=== PATIENT | male | born 1935 | race Caucasian/White ===

== ENCOUNTER 2016-08-12 13:11 | Day surgery (SDC) | payer OTHER ==
[~2016-08-12] VITALS: Ht 162.6 cm; Wt 44.4 kg
[2016-08-12 14:27] VITALS: Ht 162.6 cm; Wt 44.4 kg
[2016-08-12] MEDS ORDERED: FAMO40OR PO (14:39)
[2016-08-12] MEDS ORDERED: [UNRECOGNIZED DRUG - OTHER] (14:39)
[2016-08-12] MEDS ORDERED: CAPT12.52 PO (14:39)
[2016-08-12] MEDS ORDERED: ZOLP10TA PO (14:39)
[2016-08-12] MEDS ORDERED: TRAM50TA2 PO (14:39)
[2016-08-12] MEDS ORDERED: ATOR20TA65 PO (14:39)
[2016-08-12] MEDS ORDERED: ASPI-664 PO (14:39)
[2016-08-12] MEDS ORDERED: METO25TA7 PO (14:39)
[2016-08-12 15:54] VITALS: BP 124/65; PULSE 55; RESP 18
[2016-08-12] MEDS ORDERED: PROPOFOL 20 ML ONE (16:19)
[2016-08-12] MEDS ORDERED: FENTAnyl 50 MCG/ML VIAL ONE (16:19)
[2016-08-12] MEDS ORDERED: LIDOCAINE 4% SOLUTION 50 ML BTL ONE (16:21)
[2016-08-12 17:59] VITALS: BP 156/72; PULSE 51; RESP 18
--- NOTE | 2016-08-13 06:14 | GILP ---
DATE OF PROCEDURE: 08/12/2016 NAME OF PROCEDURE: Colonoscopy with cold snare polypectomy. SURGEON: Frances Chaves MD PREOPERATIVE DIAGNOSIS(ES) POSTOPERATIVE DIAGNOSIS(ES) HISTORY AND INDICATIONS: PREMEDICATION: Monitored anesthesia care by anesthesiologist. INSTRUMENT USED: Olympus colonoscope. PREPARATION: Adequate. TECHNIQUE: After informed consent, with the patient/relatives understanding the procedure, its indic ations potential risks and complications, including but not limited to: allergic reaction, bleeding, perforation, infection, missed lesions and after all pertinent questions were answered to the patie nt's satisfaction, the patient/relatives signed the witnessed informed consent. Following this, premedication was administered slowly IV push by under careful cardiovascular and re spiratory monitoring with pulse oximetry, automatic blood pressure and monitor technician. Once the sedativ e effect was achieved, the patient was placed in the left lateral decubitus position, digital rectal examination was performed. The colonoscope was then introduced and advanced under visual control th roughout all segments of the colon including: the rectum, sigmoid, descending colon, splenic flexure , transverse colon, hepatic flexure, ascending colon and finally reaching the cecum which was clearl y identified by transillumination, finger indentation and the ileocecal valve. Careful examination o f the mucosa of the lower gastrointestinal tract both on insertion as well as withdrawal of the inst rument disclosed the following findings: Rectal Examination: No evidence of perirectal disease, no masses. Colonic Mucosa: The colonic mucosa unremarkable with exception of an 8 mm polyp in the proximal asc ending colon. The polyp was removed with cold snare polypectomy and retrieved. The remainder of colonic mucosa unremarkable. The instrument was withdrawn reexamining the mucosa i n detail. No additional abnormalities are noted with exception of moderate sized internal hemorrhoi ds. The instrument was then withdrawn, the patient tolerated the procedure well and was transferred out of the Endoscopy Suite awake and in good condition to continue recovery under observation. IMPRESSION: 1. An 8 mm polyp in proximal ascending colon post cold snare polypectomy. 2. Moderate size internal hemorrhoids. PLAN: Pathology will be reviewed as soon as available. Colonoscopy in 5 years is recommended. Dictated By: FRANCES CHAVES MS/CHIDI Conf#: [id number] DID#: [id number]
--- NOTE | 2016-08-13 06:28 | GILP ---
DATE OF PROCEDURE: 08/12/2016 PROCEDURE: Esophagogastroduodenoscopy with argon plasma coagulation cauterization. PREMEDICATION: Monitored anesthesia care by anesthesiologist. SURGEON: Frances Chaves MD INSTRUMENT USED: Olympus panendoscope. TECHNIQUE: After informed consent, with the patient/relatives understanding the procedure, its indic ations, potential risks and complications, including but not limited to: allergic reaction, bleeding , perforation or infection, and after all pertinent questions were answered to the patients satisfac tion, the patient/relatives signed witnessed informed consent. Following this, premedication was administered slowly IV push under careful cardiovascular and respi ratory monitoring with pulse oximetry, automatic blood pressure and live in caregiver. Once the sedative effect was achieved the patient was place in the left lateral decubitus, the panen doscope was introduced and advanced under visual control. Careful examination of the upper gastrointestinal tract, both on insertion as well as withdrawal of the instrument disclosed the following findings: ESOPHAGUS: The mucosa of the entire esophagus appears within normal limits. There is no evidence of esophagitis, varices, neoplasm or stricture. No hiatal hernia identified. STOMACH: Upon entrance to the stomach, air was insufflated, the gastric cervantes distended normally. There is erythema and edema of the mucosa of a moderate degree. Biopsies were obtained to rule out H. pylori infection. There is a large 12 mm AVM with actual oozing. APC cauterization was applied with complete cessation of bleeding and eradication of the lesion. PYLORUS: The pylorus appears patent and within normal limits, with no evidence of gastric outlet ob struction. DUODENUM: The duodenal mucosa was carefully examined in the duodenal bulb as well as the second por tion of the duodenum and appears unremarkable with no evidence of duodenitis, ulcer or neoplasm. The instrument was then withdrawn, the patient tolerated the procedure well and was transfer out of the endoscopy suite awake, and in good condition to continue recovery under observation IMPRESSION: 1. Large 12 mm AVM in the greater curvature mid body of the stomach post APC cauterization. 2. Gastritis, rule out Helicobacter pylori infection, biopsies were obtained. PLAN: The patient will be treated with PPIs. Further recommendation will depend on his clinical co urse as well as review of biopsies. Dictated By: FRANCES CHAVES MS/CHIDI Conf#: [id number] [facility]#: [id number]
== END 2016-08-12 18:55 | disposition home or self-care (01) ==
LOC: GIL 13:11
PROVIDERS: ATTEND Internal Medicine Gastroenterology
DX: K29.70 Gastritis, unspecified, without bleeding (principal); R63.4 Abnormal weight loss; D12.2 Benign neoplasm of ascending colon; K64.8 Other hemorrhoids
CPT/HCPCS: 43239; 45385; 88305; 88312; J3010; Z7610

== ENCOUNTER 2018-08-07 15:00 | Emergency (ER) | payer OTHER ==
[~2018-08-07] VITALS: Ht 167.6 cm; Wt 62.0 kg
[~2018-08-07 15:00] MED LIST: ASPI-817 PO; ATOR20TA65 PO; CAPT12.52 PO; FAMO40OR2 PO; METO-335 PO; TRAM50TA2 PO; ZOLP10TA PO; [UNRECOGNIZED DRUG - OTHER]
[2018-08-07 15:12] VITALS: Ht 167.6 cm; Wt 62.0 kg
[2018-08-07] MEDS ORDERED: morphine 4 MG/ML VIAL IV STA ×2 (17:07→20:21)
[2018-08-07] MEDS ORDERED: ASPI-817 PO (19:32)
[2018-08-07] MEDS ORDERED: CAPT25TA3 PO (19:32)
[2018-08-07] MEDS ORDERED: ATOR20TA38 PO (19:33)
[2018-08-07] MEDS ORDERED: METO-335 PO (19:33)
[2018-08-07] MEDS ORDERED: ALPR0.5T PO (19:34)
[2018-08-07] MEDS ORDERED: NITR2.5C10 PO (19:34)
[2018-08-07] MEDS ORDERED: TRAM50TA PO (19:35)
--- NOTE | 2018-08-07 20:50 | ERD ---
ER Documentation Chief Complaint Chief Complaint pt bib RA from gym with c/o fall Farsi speaking only HPI 83-year-old male with an extensive cardiac history brought in from his gym by ambulance for right flank and back pain after a fall. Patient is Farsi speaking only so a pricing director was utilized. Per the patient, he was in the Jacuzzi at the gym when he slipped and fell inside the Jacuzzi hitting the right side of his back. He is complaining of severe, 10 out of 10 pain in the right flank and right mid back. The pain is worse with any type of movement and deep breathing. He denies any head injury or loss of consciousness. He denies any other pain in other locations of his body. The pain is stabbing. ROS All systems reviewed and are negative except as per history of present illness. Medications Home Meds Active Scripts [Lidocaine Patch] No Conflict Check, 1 ADH.PATCH TOP DAILY PRN for PAIN, #3 Apply the patch to the area of pain. You may keep the patch on for 12 hours a day and then remove the patch for 12 hours. Prov:NICOLE BORJA MD 08/07/18 [lido] No Conflict Check Prov:NICOLE BORJA MD 08/07/18 Hydrocodone/Acetaminophen ([place] 5-325 Tablet) 1 Each Tablet, 1 TAB PO Q6H PRN for PAIN, #10 TAB Prov:NICOLE BORJA MD 08/07/18 Ibuprofen* (Motrin*) 400 Mg Tab, 400 MG PO Q6H PRN for PAIN AND OR ELEVATED TEMP, #30 TAB Prov:NICOLE BORJA MD 08/07/18 Reported Medications Tramadol Hcl* (Ultram*) 50 Mg Tablet, 50 MG PO QHS PRN for NEEDED, TAB 08/07/18 Alprazolam* (Xanax*) Unknown Strength Tab, 1 TAB PO QHS PRN for ANXIETY, TAB 08/07/18 Nitroglycerin* (Nitro-Time*) 2.5 Mg Capsule.sa, 2.5 MG PO DAILY, CAP 08/07/18 Atorvastatin Calcium* (Atorvastatin Calcium*) 20 Mg Tablet, 20 MG PO QHS, #30 TAB 08/07/18 Metoprolol Succinate* (Toprol XL*) 25 Mg Tab.sr.24h, 12.5 MG PO DAILY, #30 TAB 08/07/18 Captopril* (Captopril*) 25 Mg Tablet, 25 MG PO QHS, #60 TAB 08/07/18 Aspirin* (Aspirin* EC) 81 Mg Tablet.dr, 81 MG PO DAILY, TAB 08/07/18 Discontinued Reported Medications Atorvastatin Calcium (Atorvastatin Calcium) 20 Mg Tablet, 20 MG PO QHS, #30 TAB 08/12/16 Zolpidem Tartrate* (Ambien*) 10 Mg Tablet, 10 MG PO QHS PRN for INSOMNIA, TAB 08/12/16 Captopril* (Captopril*) 12.5 Mg Tablet, 12.5 MG PO Q8, #90 TAB 08/12/16 Tramadol HCl (Tramadol HCl) 50 Mg Tablet, 50 MG PO BID, #60 TAB 08/12/16 [Sustac] No Conflict Check, 2-6 BID 08/12/16 Famotidine* (Famotidine*) 40 Mg/5 Ml Oral.susp, 40 MG PO HS, #150 ML 08/12/16 Aspirin* (Aspirin* EC) 81 Mg Tablet.dr, 81 MG PO DAILY, TAB 08/12/16 Metoprolol Succinate* (Toprol XL*) 25 Mg Tab.sr.24h, 25 MG PO DAILY, #30 TAB 08/12/16 Allergies Allergies: Coded Allergies: No Known Allergy (Unverified , 08/07/18) PMhx/Soc History of Surgery: Yes (BACK SURGERY, PROSTATE , 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) Anesthesia Reaction: No Hx Neurological Disorder: No Hx Respiratory Disorders: No Hx Cardiac Disorders: Yes (CAD) Hx Psychiatric Problems: No Hx Miscellaneous Medical Probl: Yes (DYSLIPEDEMIA) Hx Alcohol Use: No Hx Substance Use: No Hx Tobacco Use: No Smoking Status: Never smoker FmHx Family History: No diabetes Physical Exam Vitals Vital Signs Date Temp Pulse Resp B/P (MAP) Pulse Ox O2 O2 Flow FiO2 Time Delivery Rate 08/07/18 63 22 153/88 98 Room Air 22:00 (109) 08/07/18 69 16 142/75 98 Room Air 19:44 (97) 08/07/18 98.6 68 18 107/66 96 15:12 (80) Physical Exam Const: In distress secondary to pain, nontoxic Head: Atraumatic Eyes: Normal Conjunctiva ENT: Normal External Ears, Nose and Mouth. No evidence of facial injury Neck: Full range of motion. No meningismus. Resp: Clear to auscultation bilaterally. No chest wall tenderness to palpation or crepitus. Cardio: Regular rate and rhythm, no murmurs. 2+ distal pulses in all 4 extremities Abd: Soft, non tender, non distended. Normal bowel sounds Skin: No petechiae or rashes Back: No midline tenderness or step-offs. Right mid back with superficial abrasions and diffuse tenderness to palpation of the ribs. No crepitus. Ext: No cyanosis, or edema. Normal to inspection and palpation with full range of motion at all joints without joint swelling. Neur: Awake and alert, normal speech, no facial asymmetry, moving all extre mities spontaneously with normal strength grossly in all 4 extremities. Sensations intact. Psych: Normal Mood and Affect Result Diagram: 08/07/18 1725 08/07/18 1725 Results 24 hrs Laboratory Tests Test 08/07/18 17:25 White Blood Count 8.2 10^3/ul Red Blood Count 4.47 10^6/ul Hemoglobin 13.4 g/dl Hematocrit 39.7 % Mean Corpuscular Volume 88.8 fl Mean Corpuscular Hemoglobin 30.0 pg Mean Corpuscular Hemoglobin Concent 33.8 g/dl Red Cell Distribution Width 12.9 % Platelet Count 145 10^3/UL Mean Platelet Volume 10.2 fl Immature Granulocytes % 0.500 % Neutrophils % 82.2 % Lymphocytes % 10.6 % Monocytes % 5.7 % Eosinophils % 0.6 % Basophils % 0.4 % Nucleated Red Blood Cells % 0.0 /100WBC Immature Granulocytes # 0.040 10^3/ul Neutrophils # 6.8 10^3/ul Lymphocytes # 0.9 10^3/ul Monocytes # 0.5 10^3/ul Eosinophils # 0.1 10^3/ul Basophils # 0.0 10^3/ul Nucleated Red Blood Cells # 0.0 10^3/ul Prothrombin Time 12.7 Sec Prothrombin Time Ratio 1.0 INR International Normalized Ratio 0.94 Activated Partial Thromboplast Time 28.7 Sec Sodium Level 142 mmol/L Potassium Level 4.6 mmol/L Chloride Level 104 mmol/L Carbon Dioxide Level 29 mmol/L Anion Gap 9 Blood Urea Nitrogen 20 mg/dl Creatinine 0.63 mg/dl Est Glomerular Filtrat Rate mL/min mL/min Glucose Level 101 mg/dl Calcium Level 9.1 mg/dl Total Bilirubin 0.9 mg/dl Direct Bilirubin 0.00 mg/dl Indirect Bilirubin 0.9 mg/dl Aspartate Amino Transf (AST/SGOT) 41 IU/L Alanine Aminotransferase (ALT/SGPT) 36 IU/L Alkaline Phosphatase 107 IU/L Total Protein 7.0 g/dl Albumin 3.9 g/dl Current Medications Medications Dose Sig/Allyn Start Time Status Last (Trade) Ordered Route PRN Stop Time Admin Dose Reason Admin Morphine 4 mg ONCE STAT 08/07/18 DC 08/07/18 Sulfate IV 17:07 17:28 (morphine) 08/07/18 17:10 Morphine 4 mg ONCE STAT 08/07/18 DC 08/07/18 Sulfate IV 20:21 20:38 (morphine) 08/07/18 20:28 Procedures/MDM EMERGENT LABS AND DIAGNOSTIC STUDIES: Lab Results above were reviewed and interpreted by me. CBC: no anemia or evidence of infection CMP: No evidence of electrolyte abnormality, renal failure, hypoglycemia, liver failure, or biliary obstruction Radiology Results as interpreted by Radiology below were reviewed by Kp Borja MD: US FAST was normal without evidence of intraperitoneal free fluid Chest x-ray did not show any acute abnormalities CT chest showed evidence of right posterior lateral multiple rib fractures. No evidence of pneumothorax or pulmonary contusion Initial Nursing notes reviewed. Previous Medical Records requested via the Electronic Health Record. EMERGENCY DEPARTMENT COURSE / MEDICAL DECISION MAKING: Patient is presenting complaining of right mid back pain after a fall with no other associated symptoms. Vitals are stable and he is normoxic on room air. His workup showed evidence of multiple rib fractures on the right without evidence of other serious injuries. Patient's pain was controlled with IV opiates. Patient's daughter later arrived at bedside. I explained the findings with her and the patient. Incentive spirometer use was discussed and they are provided with an I-S. I recommended [place] as needed for pain at this time as well as ibuprofen with side effects of both medications discussed. Given the dependency potential of [place], I recommended follow-up in 2-3 days with primary care doctor to discuss other options for pain control. Patient's daughter feels comfortable with this plan. All questions were answered at bedside. They are encouraged to return for any worsening symptoms. Patient's blood pressure was elevated (>120/80) but appears stable without evidence of hypertensive emergency or urgency. The patient was counseled about the risks of hypertension and urged to pursue outpatient monitoring and therapy within a week with their primary care physician. Departure Diagnosis: Primary Impression: Fall Encounter type: initial encounter Qualified Codes: W19.XXXA - Unspecified fall, initial encounter Additional Impression: Multiple fractures of ribs, right side, initial encounter for closed fracture Condition: Stable NICOLE BORJA MD Aug 07, 2018 20:50
[2018-08-07] MEDS ORDERED: Lidocaine Patch TOP (21:57)
[2018-08-07] MEDS ORDERED: IBUP-1561 PO (21:57)
[2018-08-07] MEDS ORDERED: lido (21:57)
[2018-08-07] MEDS ORDERED: HYDR-4011 PO (21:57)
[2018-08-07 22:00] VITALS: BP 153/88; PULSE 63; RESP 22
== END 2018-08-07 22:15 | disposition home or self-care (01) ==
LOC: E/R 15:00
DX: S22.41XA Multiple fractures of ribs, right side, initial encounter for closed fracture (principal); I25.10 Atherosclerotic heart disease of native coronary artery without angina pectoris; W01.198A Fall on same level from slipping, tripping and stumbling with subsequent striking against other object, initial encounter; Y92.89 Other specified places as the place of occurrence of the external cause; Z79.82 Long term (current) use of aspirin; Z95.1 Presence of aortocoronary bypass graft
CPT/HCPCS: 71045; 71250; 80048; 80076; 85025; 85610; 85730; 96374; 96376; J2270; Z7502